=== PATIENT | female | born 1980 | race Caucasian/White ===

== ENCOUNTER 2024-02-07 09:15 | Outpatient (RCR) | payer BC, SELFPAY | END 2024-02-07 23:59 | disposition home or self-care (01) | LOC: RPT 09:15 | PROVIDERS: ATTENDING PHYSICIAN Obstetrics & Gynecology; FAMILY PHYSICIAN Family Medicine | DX: N39.41 Urge incontinence (principal); R39.15 Urgency of urination; M54.50 Low back pain, unspecified; N39.3 Stress incontinence (female) (male); N94.12 Deep dyspareunia | CPT/HCPCS: 97110; 97112; 97140; 97163; 97530 ==

== ENCOUNTER 2024-03-15 11:11 | Outpatient (RCR) | payer BC, SELFPAY | END 2024-03-15 23:59 | disposition home or self-care (01) | LOC: RPT 11:11 | PROVIDERS: ATTENDING PHYSICIAN Obstetrics & Gynecology; FAMILY PHYSICIAN Family Medicine | DX: N39.41 Urge incontinence (principal); N39.3 Stress incontinence (female) (male); M54.50 Low back pain, unspecified; N94.12 Deep dyspareunia; Z73.6 Limitation of activities due to disability | CPT/HCPCS: 97110; 97112; 97140; 97530 ==

== ENCOUNTER 2024-04-19 11:13 | Outpatient (RCR) | payer BC, SELFPAY | END 2024-04-19 23:59 | disposition home or self-care (01) | LOC: RPT 11:13 | PROVIDERS: ATTENDING PHYSICIAN Obstetrics & Gynecology; FAMILY PHYSICIAN Family Medicine | DX: N39.41 Urge incontinence (principal); N39.3 Stress incontinence (female) (male); R39.15 Urgency of urination; M54.50 Low back pain, unspecified; Z73.6 Limitation of activities due to disability; N94.12 Deep dyspareunia | CPT/HCPCS: 97110; 97112; 97140; 97530 ==

== ENCOUNTER 2024-05-16 13:55 | Outpatient (RCR) | payer BC, SELFPAY | END 2024-05-16 23:59 | disposition home or self-care (01) | LOC: RPT 13:55 | PROVIDERS: ATTENDING PHYSICIAN Obstetrics & Gynecology; FAMILY PHYSICIAN Family Medicine | DX: N39.41 Urge incontinence (principal); R39.15 Urgency of urination; N39.3 Stress incontinence (female) (male); Z73.6 Limitation of activities due to disability; M54.50 Low back pain, unspecified; N94.12 Deep dyspareunia | CPT/HCPCS: 97014; 97112; 97140; 97530 ==

== ENCOUNTER 2024-06-14 11:25 | Outpatient (RCR) | payer BC, SELFPAY | END 2024-06-19 07:35 | disposition home or self-care (01) | LOC: RPT 11:25 | PROVIDERS: ATTENDING PHYSICIAN Obstetrics & Gynecology; FAMILY PHYSICIAN Family Medicine | DX: N39.41 Urge incontinence (principal); N39.3 Stress incontinence (female) (male); R39.15 Urgency of urination; Z73.6 Limitation of activities due to disability; M54.50 Low back pain, unspecified; N94.12 Deep dyspareunia | CPT/HCPCS: 97110; 97112; 97140; 97530 ==

== ENCOUNTER 2024-08-14 12:46 | Outpatient (RCR) | payer BC, SELFPAY | END 2024-08-14 23:59 | disposition home or self-care (01) | LOC: ROT 12:46 | PROVIDERS: ATTENDING PHYSICIAN Internal Medicine | DX: M25.531 Pain in right wrist (principal); Z73.6 Limitation of activities due to disability | CPT/HCPCS: 97010; 97035; 97110; 97140; 97166; 97535 ==

== ENCOUNTER 2024-09-18 15:08 | Outpatient (RCR) | payer BC, SELFPAY | END 2024-09-18 23:59 | disposition home or self-care (01) | LOC: ROT 15:08 | PROVIDERS: ATTENDING PHYSICIAN Internal Medicine | DX: M25.531 Pain in right wrist (principal); Z73.6 Limitation of activities due to disability | CPT/HCPCS: 97018; 97110; 97140 ==

== ENCOUNTER 2024-10-02 12:13 | Outpatient (RCR) | payer BC, SELFPAY | END 2024-10-02 23:59 | disposition home or self-care (01) | LOC: ROT 12:13 | PROVIDERS: ATTENDING PHYSICIAN Internal Medicine | DX: M25.531 Pain in right wrist (principal); Z73.6 Limitation of activities due to disability | CPT/HCPCS: 97010; 97110; 97140 ==

== ENCOUNTER → 2024-10-05 10:56 | Outpatient (REF) | payer BC, SELFPAY | LOC: HWEVLT 10:56 | PROVIDERS: ATTENDING PHYSICIAN Radiology Diagnostic Radiology | DX: I83.893 Varicose veins of bilateral lower extremities with other complications (principal) | CPT/HCPCS: 93970 ==

== ENCOUNTER → 2025-03-20 14:09 | Outpatient (REF) | payer BC, SELFPAY | LOC: WDC 14:09 | PROVIDERS: ATTENDING PHYSICIAN Family Medicine; FAMILY PHYSICIAN Internal Medicine | DX: Z12.31 Encounter for screening mammogram for malignant neoplasm of breast (principal) | CPT/HCPCS: 77063; 77067 ==

== ENCOUNTER → 2025-05-03 09:35 | Outpatient (REF) | payer BC, SELFPAY | LOC: PAVMRI 09:35 | PROVIDERS: ATTENDING PHYSICIAN Nurse Practitioner Adult Health; FAMILY PHYSICIAN Internal Medicine | DX: R93.0 Abnormal findings on diagnostic imaging of skull and head, not elsewhere classified (principal); G93.5 Compression of brain | CPT/HCPCS: 70553; A9575 ==

== ENCOUNTER 2025-05-30 06:27 | Day surgery (SDC) | payer BC, SELFPAY | END 2025-05-30 13:30 | disposition home or self-care (01) | LOC: GI 06:27 | PROVIDERS: ATTENDING PHYSICIAN Internal Medicine | DX: Z12.11 Encounter for screening for malignant neoplasm of colon (principal); D12.2 Benign neoplasm of ascending colon; D12.5 Benign neoplasm of sigmoid colon; K63.5 Polyp of colon; D12.8 Benign neoplasm of rectum; Q43.8 Other specified congenital malformations of intestine | CPT/HCPCS: 45385; 45380; 88305 ==